=== PATIENT | female | born 1970 | race Caucasian/White ===

== ENCOUNTER 2016-12-10 07:32 | Outpatient (CLI) | payer OTHER ==
[~2016-12-10] VITALS: Ht 177.8 cm; Wt 79.5 kg
[~2016-12-10 07:32] MED LIST: /WARF3TA; AMPICILLIN SOD 2 GM in D5W MINI-BAG PLUS 100 ML IV ONE; ASPI81TA63; COUM2TAB22 PO; COUM6TAB PO; DOCU10CA PO; GAS-80CH PO; MVI; NORA0.35 PO; TUMS500C PO
== END 2016-12-10 08:45 | disposition home or self-care (01) ==
LOC: M INFU 07:32
PROVIDERS: ATTEND Physician Assistant
DX: Z95.4 Presence of other heart-valve replacement (principal); Z91.010 Allergy to peanuts; Z79.82 Long term (current) use of aspirin; Z79.01 Long term (current) use of anticoagulants; Z79.899 Other long term (current) drug therapy

== ENCOUNTER 2016-12-10 17:55 | Outpatient (CLI) | payer OTHER ==
[~2016-12-10] VITALS: Ht 177.8 cm; Wt 49.5 kg
[~2016-12-10 17:55] MED LIST changes: -AMPICILLIN SOD 2 GM in D5W MINI-BAG PLUS 100 ML IV ONE
[2016-12-10 18:00] VITALS: BP 136/69
[2016-12-10] MEDS ORDERED: AMPICILLIN SOD 2 GM in D5W MINI-BAG PLUS 100 ML IV ONE (18:15)
[2016-12-10 18:55] VITALS: BP 138/75
== END 2016-12-10 19:10 | disposition home or self-care (01) ==
LOC: M OPCLIPED 17:55 → M INFU 17:55 → M PED 17:59 → M INFU 19:10
PROVIDERS: ATTEND Physician Assistant
DX: Z95.4 Presence of other heart-valve replacement (principal); Z91.010 Allergy to peanuts; Z79.82 Long term (current) use of aspirin; Z79.01 Long term (current) use of anticoagulants; Z79.899 Other long term (current) drug therapy

== ENCOUNTER → 2017-06-13 | Outpatient (REF) | payer OTHER ==
[2017-06-13 14:03] LABS: INR 2.88; PROTHROMBIN TIME 31.5 SECONDS (12.4-14.5)
== END ==
LOC: M LAB REF 12:30
DX: Z95.2 Presence of prosthetic heart valve (principal); Z79.01 Long term (current) use of anticoagulants
CPT/HCPCS: 85610

== ENCOUNTER 2018-01-05 07:03 | Outpatient (CLI) | payer OTHER ==
[2018-01-05] MEDS: AMPICILLIN SOD 2 GM in D5W MINI-BAG PLUS 100 ML IV (07:45)
== END 2018-01-05 09:15 | disposition home or self-care (01) ==
LOC: M INFU 07:03
DX: Z95.4 Presence of other heart-valve replacement (principal); Z86.79 Personal history of other diseases of the circulatory system; Z79.82 Long term (current) use of aspirin; Z79.01 Long term (current) use of anticoagulants; Z79.899 Other long term (current) drug therapy
CPT/HCPCS: 96365

== ENCOUNTER 2018-01-05 17:03 | Outpatient (CLI) | payer OTHER ==
[2018-01-05] MEDS: AMPICILLIN SOD 2 GM in D5W MINI-BAG PLUS 100 ML IV (17:10)
== END 2018-01-05 17:50 | disposition home or self-care (01) ==
LOC: M INFU 17:03
DX: Z95.4 Presence of other heart-valve replacement (principal); Z79.899 Other long term (current) drug therapy; Z79.82 Long term (current) use of aspirin; Z79.01 Long term (current) use of anticoagulants; Z86.79 Personal history of other diseases of the circulatory system
CPT/HCPCS: 96365

== ENCOUNTER 2019-01-08 06:59 | Outpatient (CLI) | payer OTHER ==
[~2019-01-08] VITALS: Ht 175.3 cm; Wt 79.5 kg
[~2019-01-08 06:59] MED LIST changes: -/WARF3TA; +COUM1TAB19
[2019-01-08 07:00] VITALS: BP 131/75
[2019-01-08] MEDS ORDERED: AMPICILLIN SOD 2 GM in D5W MINI-BAG PLUS 100 ML IV ONE (07:00)
[2019-01-08] MEDS ORDERED: AMPI2INJ2 IV (07:43)
[2019-01-08 09:25] VITALS: BP 144/67
== END 2019-01-08 09:25 | disposition home or self-care (01) ==
LOC: M INFU 06:59
PROVIDERS: ATTEND Physician Assistant
DX: Z95.4 Presence of other heart-valve replacement (principal)

== ENCOUNTER 2019-01-08 17:49 | Outpatient (CLI) | payer OTHER ==
[~2019-01-08] VITALS: Ht 177.8 cm; Wt 79.5 kg
[~2019-01-08 17:49] MED LIST changes: +AMPI2INJ2 IV; +AMPICILLIN SOD 2 GM in D5W MINI-BAG PLUS 100 ML IV ONE
[2019-01-08 18:00] VITALS: BP 149/69
[2019-01-08 18:47] VITALS: BP 149/85
== END 2019-01-08 18:55 | disposition home or self-care (01) ==
LOC: M INFU 17:49
PROVIDERS: ATTEND Physician Assistant
DX: Z95.4 Presence of other heart-valve replacement (principal); Z98.818 Other dental procedure status

== ENCOUNTER → 2019-07-02 | Outpatient (REF) | payer OTHER ==
[~2019-07-02] MED LIST changes: -AMPICILLIN SOD 2 GM in D5W MINI-BAG PLUS 100 ML IV ONE
[2019-07-02 13:58] LABS: INR 2.83; PROTHROMBIN TIME 29.6 SECONDS (11.8-14.0)
== END ==
LOC: M LAB REF 12:34
PROVIDERS: ATTEND Family Medicine
DX: Z79.01 Long term (current) use of anticoagulants (principal); Z95.2 Presence of prosthetic heart valve

== ENCOUNTER 2020-01-10 05:02 | Outpatient (CLI) | payer OTHER ==
[~2020-01-10 05:02] MED LIST changes: -COUM6TAB PO; +COUM6TAB10 PO
[2020-01-10 05:26] VITALS: BP 130/84
[2020-01-10] MEDS ORDERED: AMPICILLIN SOD 2 GM in D5W MINI-BAG PLUS 100 ML IV ONE (06:00)
== END 2020-01-10 07:30 | disposition home or self-care (01) ==
LOC: M OPCLI5PR 05:02 → M MS5PR 05:07 → M OPCLI5PR 07:30
PROVIDERS: ATTEND Physician Assistant
DX: Z95.2 Presence of prosthetic heart valve (principal)
CPT/HCPCS: 96365; J0290

== ENCOUNTER 2020-01-10 17:18 | Outpatient (CLI) | payer OTHER ==
[~2020-01-10] VITALS: Ht 175.3 cm; Wt 78.6 kg
[2020-01-10] MEDS ORDERED: AMPICILLIN SOD 2 GM in D5W MINI-BAG PLUS 100 ML IV SCH (18:00)
[2020-01-10 18:16] VITALS: BP 137/68
== END 2020-01-10 19:10 | disposition home or self-care (01) ==
LOC: M OPCLI5PR 17:18 → M MS5PR 17:30 → M OPCLI5PR 19:10
PROVIDERS: ATTEND Physician Assistant
DX: Z95.2 Presence of prosthetic heart valve (principal)
CPT/HCPCS: 96374; J0290

== ENCOUNTER 2020-09-10 16:33 | Outpatient (CLI) | payer OTHER ==
[~2020-09-10] VITALS: Ht 175.3 cm; Wt 78.6 kg
[~2020-09-10 16:33] MED LIST changes: -GOOD81CH2 PO; -WARF-60 PO
[2020-09-10 16:40] VITALS: BP 160/84
[2020-09-10 17:55] VITALS: BP 138/78
[2020-09-24] MEDS ORDERED: WARF-60 PO (11:20)
[2020-09-24] MEDS ORDERED: GOOD81CH2 PO (11:20)
== END 2020-09-10 17:55 | disposition home or self-care (01) ==
LOC: M INFU 16:33
PROVIDERS: ATTEND Physician Assistant
DX: Z95.2 Presence of prosthetic heart valve (principal)
CPT/HCPCS: 96365; J0290

== ENCOUNTER → 2020-09-10 | Outpatient (CLI) | payer OTHER ==
[~2020-09-10] MED LIST changes: +AMPICILLIN SOD 2 GM in D5W MINI-BAG PLUS 100 ML IV ONE; +GOOD81CH2 PO; +WARF-60 PO
== END ==
LOC: M OPCLI4PR 05:28
PROVIDERS: ATTEND Physician Assistant
DX: Z95.2 Presence of prosthetic heart valve (principal)
CPT/HCPCS: 96374; J0290

== ENCOUNTER → 2020-10-03 | Outpatient (CLI) | payer OTHER ==
[~2020-10-03] MED LIST changes: -AMPICILLIN SOD 2 GM in D5W MINI-BAG PLUS 100 ML IV ONE; +GOOD81CH2 PO; +WARF-60 PO
== END ==
LOC: M LABSMTC 10:05
PROVIDERS: ATTEND Anesthesiology
DX: Z01.818 Encounter for other preprocedural examination (principal); Z20.822 Contact with and (suspected) exposure to COVID-19

== ENCOUNTER 2020-10-08 10:40 | Day surgery (SDC) | payer OTHER ==
[~2020-10-08] VITALS: Ht 175.3 cm; Wt 76.7 kg
[~2020-10-08 10:40] MED LIST changes: +AMPICILLIN SOD 2 GM in D5W MINI-BAG PLUS 100 ML IV ONE; +GENTAMICIN 80 MG in IV 1 EA IV ONE; +NS 1,000 ML IV ONE
--- NOTE | 2020-10-08 12:32 | ROOR ---
Patient Name: Deepthi Leung Procedure Date: 10/08/2020 12:14 PM Date of : 1970 Age: 50 Room: [facility] Gender: Female Note Status: Finalized Procedure: Total Colonoscopy to Cecum + ileoscopy Indications: Screening for colorectal malignant neoplasm Providers: Hu Amaro MD Referring MD: Giovani Ramirez MD Requesting Provider: Medicines: Monitored Anesthesia Care Complications: No immediate complications. Procedure: Pre-Anesthesia Assessment: - The heart rate, respiratory rate, oxygen saturations, blood pressure, adequacy of pulmonary ventilation, and response to care were monitored throughout the procedure. The Colonoscope was introduced through the anus and advanced to the terminal ileum, with identification of the appendiceal orifice and IC valve. The colonoscopy was performed without difficulty. The patient tolerated the procedure well. The quality of the bowel preparation was excellent. Findings: The perianal and digital rectal examinations were normal. Scattered small-mouthed diverticula were found in the recto-sigmoid colon, sigmoid colon and descending colon. The terminal ileum appeared normal. The exam was otherwise without abnormality on direct and retroflexion views. Impression: - Diverticulosis in the recto-sigmoid colon, in the sigmoid colon and in the descending colon. - The examined portion of the ileum was normal. - The examination was otherwise normal on direct and retroflexion views. - No specimens collected. - The exam was otherwise normal to the cecum. Recommendation: - Patient has a contact number available for emergencies. The signs and symptoms of potential delayed complications were discussed with the patient. Return to normal activities tomorrow. Written discharge instructions were provided to the patient. - High fiber diet. - Discharge patient to home. - Continue present medications. - Repeat colonoscopy in 10 years for screening purposes. - Return to referring physician. - The findings and recommendations were discussed with the patient's family. Procedure Code(s): --- Professional --- 80451, Colonoscopy, flexible; diagnostic, including collection of specimen(s) by brushing or washing, when performed (separate procedure) Diagnosis Code(s): --- Professional --- Z12.11, Encounter for screening for malignant neoplasm of colon K57.30, Diverticulosis of large intestine without perforation or abscess without bleeding CPT copyright 2019 [employer]. All rights reserved. The codes documented in this report are preliminary and upon inspector cold working review may be revised to meet current compliance requirements. Hu Amaro MD Hu Amaro MD 10/08/2020 12:32:02 PM Electronically signed by Hu Amaro MD Number of Addenda: 0 Note Initiated On: 10/08/2020 12:14 PM Estimated Blood Loss: Estimated blood loss: none.
[2020-10-08] MEDS ORDERED: LIDOCAINE 2% 100MG/5ML SDV (FOR ANES.) As Ordered ONE (12:47)
[2020-10-08] MEDS ORDERED: propofoL 200 MG/20 ML VIAL As Ordered ONE (12:47)
[2020-10-08 13:00] VITALS: BP 124/66
== END 2020-10-08 13:13 | disposition home or self-care (01) ==
LOC: M OPP 10:40
PROVIDERS: ATTEND Internal Medicine Gastroenterology
DX: Z12.11 Encounter for screening for malignant neoplasm of colon (principal); K57.30 Diverticulosis of large intestine without perforation or abscess without bleeding; Z79.01 Long term (current) use of anticoagulants; Z79.82 Long term (current) use of aspirin; Z95.4 Presence of other heart-valve replacement; Z91.018 Allergy to other foods
CPT/HCPCS: 45378; J0290; J1580

== ENCOUNTER → 2020-12-05 | Outpatient (CLI) | payer OTHER ==
[~2020-12-05] MED LIST changes: -AMPICILLIN SOD 2 GM in D5W MINI-BAG PLUS 100 ML IV ONE; -GENTAMICIN 80 MG in IV 1 EA IV ONE; -NS 1,000 ML IV ONE
--- NOTE | 2020-12-05 09:24 | REPMRS ---
Patient History The patient states she had a clinical breast exam on 06/11/2020. Patient had first child at age 34. No known family history of cancer. Taking hormonal contraceptives for 4 years beginning at age 46. Patient states no breast complaints today. Patient has signed MRS History Sheet. Digital Woman Screen Mammo: December 05, 2020 - Exam #: [id number] Bilateral CC and MLO view(s) were taken. Technologist: Maritza Son, Wet Milling Wheel Operator Prior study comparison: July 25, 2019, bilateral screening 3D/tomosynthesis, performed at [facility]. November 24, 2018, bilateral screening 3D/tomosynthesis, performed at [facility]. FINDINGS: There are scattered fibroglandular densities. Screening. Digital screening (2D) mammography was performed bilaterally in the CC and MLO projections. Additionally, breast tomosynthesis (3D mammography) was performed bilaterally in the CC and MLO projections. Todays exam was compared to the prior exam/exams. By history, the patient has no complaints of a palpable breast abnormality or other significant breast complaints. The Volpara volumetric breast density category is B, there are scattered areas of fibroglandular densities. The breasts are unchanged in size and shape. There are no sary-soft tissue densities or spiculated masses. There is no internal architectural distortion. There are no suspicious sary-calcific clusters. Skin thickening or nipple retraction is not present. IMPRESSION: BI-RADS Category 2- Benign Findings. There is no evidence of malignant alteration of the breasts. Followup examination recommended in one year. This mammogram was read with the assistance of [employer],an FDA approved computer aided detection system for mammography. The lifetime Tyrer-Cuzick score is 12.3% Negative x-ray reports should not delay surgical consultation if a dominant or clinically suspicious mass is present. Not all breast cancers can be identified by mammography. Therefore, we recommend that you continue to perform regular breast self-examination and physical examination and then promptly contact your physician of any concerns or changes. Adenosis and dense breasts may obscure an underlying neoplasm. No significant changes when compared with prior studies. Assessment: BI-RADS/ACR category 2 mammogram. Benign Findings. Recommendation Routine screening mammogram of both breasts in 1 year. Electronically Signed By: Jam Higginbotham MD 12/05/20 0909
== END ==
LOC: M WHC 08:20
PROVIDERS: ATTEND Obstetrics & Gynecology
DX: Z12.31 Encounter for screening mammogram for malignant neoplasm of breast (principal)

== ENCOUNTER 2021-01-09 07:05 | Outpatient (CLI) | payer OTHER ==
[~2021-01-09] VITALS: Ht 175.3 cm; Wt 78.6 kg
[~2021-01-09 07:05] MED LIST changes: -AMPI2INJ2 IV; +AMPI2INJ3 IV; +AMPICILLIN SOD 2 GM in D5W MINI-BAG PLUS 100 ML IV SCH
[2021-01-09] MEDS ORDERED: AMPICILLIN SOD 2 GM in D5W MINI-BAG PLUS 100 ML IV ONE ×2 (07:30→15:00)
[2021-01-09 09:40] VITALS: BP 146/81
[2021-01-09] MEDS ORDERED: AMPICILLIN SOD 2 GM in D5W MINI-BAG PLUS 100 ML IV SCH (15:00)
== END 2021-01-09 09:40 | disposition home or self-care (01) ==
LOC: M INFU 07:05
PROVIDERS: ATTEND Physician Assistant
DX: I35.1 Nonrheumatic aortic (valve) insufficiency (principal); I33.0 Acute and subacute infective endocarditis; Z95.2 Presence of prosthetic heart valve
CPT/HCPCS: 96365; J0290

== ENCOUNTER 2021-01-09 18:29 | Outpatient (CLI) | payer OTHER ==
[~2021-01-09] VITALS: Ht 175.3 cm; Wt 78.6 kg
[~2021-01-09 18:29] MED LIST changes: +AMPI2INJ2 IV; -AMPI2INJ3 IV; -AMPICILLIN SOD 2 GM in D5W MINI-BAG PLUS 100 ML IV SCH
[2021-01-09 18:30] VITALS: BP 133/68
[2021-01-09] MEDS ORDERED: AMPICILLIN SOD 2 GM in D5W MINI-BAG PLUS 100 ML IV ONE (18:45)
[2021-01-09] MEDS ORDERED: AMPICILLIN SOD 2 GM in D5W MINI-BAG PLUS 100 ML IV SCH (18:45)
[2021-01-09 19:36] VITALS: BP 123/68
== END 2021-01-09 19:35 | disposition home or self-care (01) ==
LOC: M INFU 18:29
PROVIDERS: ATTEND Internal Medicine Cardiovascular Disease
DX: I35.8 Other nonrheumatic aortic valve disorders (principal); Z95.4 Presence of other heart-valve replacement
CPT/HCPCS: 96365; J0290

== ENCOUNTER → 2021-12-07 | Outpatient (CLI) | payer BC, MEDICARE, SELFPAY ==
[~2021-12-07] MED LIST changes: -AMPI2INJ2 IV; +AMPI2INJ3 IV
== END ==
LOC: M WHC 09:07
PROVIDERS: ATTEND Obstetrics & Gynecology
DX: Z12.31 Encounter for screening mammogram for malignant neoplasm of breast (principal)

== ENCOUNTER 2022-01-14 07:30 | Outpatient (CLI) | payer BC ==
[~2022-01-14] VITALS: Ht 175.3 cm; Wt 78.6 kg
[~2022-01-14 07:30] MED LIST changes: -GOOD81CH2 PO; +RA A81CH3 PO
[2022-01-14] MEDS: AMPICILLIN SOD 2 GM in D5W MINI-BAG PLUS 100 ML IV ONE ×2 (08:14→08:49)
[2022-01-14 08:45] VITALS: BP 117/58
[2022-01-14 09:35] VITALS: BP 151/65
[2022-01-14] MEDS ORDERED: AMPICILLIN SOD 2 GM in D5W MINI-BAG PLUS 100 ML IV ONE (18:00)
== END 2022-01-14 09:30 | disposition home or self-care (01) ==
LOC: M INFU 07:30
PROVIDERS: ATTEND Physician Assistant
DX: I35.8 Other nonrheumatic aortic valve disorders (principal); Z95.4 Presence of other heart-valve replacement
CPT/HCPCS: 96365; J0290

== ENCOUNTER 2022-01-14 18:43 | Outpatient (CLI) | payer BC ==
[~2022-01-14] VITALS: Ht 175.3 cm; Wt 78.6 kg
[2022-01-14] MEDS ORDERED: AMPICILLIN SOD 2 GM in D5W MINI-BAG PLUS 100 ML IV ONE (19:00)
[2022-01-14 19:20] VITALS: BP 135/67
[2022-01-14 20:11] VITALS: BP 134/68
== END 2022-01-14 20:11 | disposition home or self-care (01) ==
LOC: M INFU 18:43 → M MS5PR 18:44 → M INFU 20:11
PROVIDERS: ATTEND Family Medicine
DX: I35.8 Other nonrheumatic aortic valve disorders (principal); Z95.4 Presence of other heart-valve replacement
CPT/HCPCS: 96365; J0290

== ENCOUNTER 2023-04-07 07:46 | Outpatient (CLI) | payer BC ==
[~2023-04-07 07:46] MED LIST changes: +ASPI-663 PO; -RA A81CH3 PO
[2023-04-07] MEDS ORDERED: AMPICILLIN SOD 2 GM in D5W MINI-BAG PLUS 100 ML IV ONE (08:15)
[2023-04-07 09:20] VITALS: BP 152/68; O2SAT 100
== END 2023-04-07 09:20 ==
LOC: M INFU 07:46
PROVIDERS: ATTEND Physician Assistant
DX: I35.0 Nonrheumatic aortic (valve) stenosis (principal); Z95.2 Presence of prosthetic heart valve
CPT/HCPCS: 96365; J0290

== ENCOUNTER 2023-04-07 19:49 | Outpatient (CLI) | payer BC ==
[~2023-04-07] VITALS: Ht 177.8 cm; Wt 83.0 kg
[2023-04-07 20:00] VITALS: BP 145/73; TEMP 98.6; O2SAT 99
[2023-04-07] MEDS ORDERED: AMPICILLIN SOD 2 GM in D5W MINI-BAG PLUS 100 ML IV ONE (20:20)
[2023-04-07 21:30] VITALS: BP 147/71; TEMP 98.4; O2SAT 100
== END 2023-04-07 21:40 | disposition home or self-care (01) ==
LOC: M PED 19:49 → M OPCLIPED 19:49 → M INFU 19:49 → M PED 21:40
PROVIDERS: ATTEND Internal Medicine Cardiovascular Disease
DX: I35.0 Nonrheumatic aortic (valve) stenosis (principal); Z95.2 Presence of prosthetic heart valve
CPT/HCPCS: 96365; J0290

== ENCOUNTER → 2023-08-22 | Outpatient (REF) | payer BC | LOC: M PLALAB 08:27 | PROVIDERS: ATTEND Nurse Practitioner Family | DX: Z12.4 Encounter for screening for malignant neoplasm of cervix (principal); Z11.51 Encounter for screening for human papillomavirus (HPV) ==

== ENCOUNTER → 2023-09-02 | Outpatient (REF) | payer BC ==
[2023-09-02 16:52] LABS: BASO % 0.2 % (0.0-1.0); HEMATOCRIT 38.9 % (36.0-47.0); HEMOGLOBIN 12.6 g/dl (12.0-15.5); LYMPH # 0.7 10^3/uL (1.5-5.0); MEAN CORPUSCULAR HGB CONC 32.4 g/dl (32.0-36.5); MEAN CORPUSCULAR VOLUME 98.7 fl (80.0-96.0); MONO # 0.1 10^3/uL (0.0-0.8); MONO % 0.8 % (2.0-8.0); NEUTROPHILS # 9.7 10^3/uL (1.5-8.5); NEUTROPHILS % 91.8 % (36.0-66.0); PLATELET COUNT, AUTOMATED 306 10^3/uL (150-450); RED BLOOD COUNT 3.94 10^6/uL (4.00-5.40); WHITE BLOOD COUNT 10.6 10^3/uL (4.0-10.0)
[2023-09-02 17:11] LABS: INR 3.88; PROTHROMBIN TIME 36.6 SECONDS (12.5-14.5)
== END ==
LOC: M LABWUC 16:20
PROVIDERS: ATTEND Family Medicine
DX: R79.9 Abnormal finding of blood chemistry, unspecified (principal); Z79.01 Long term (current) use of anticoagulants

== ENCOUNTER → 2024-01-03 | Outpatient (REF) | payer BC | LOC: M SFHCDERM 13:46 | PROVIDERS: ATTEND Nurse Practitioner Family | DX: C44.519 Basal cell carcinoma of skin of other part of trunk (principal) ==

== ENCOUNTER → 2024-01-18 | Outpatient (CLI) | payer BC | LOC: M WHC 09:33 | PROVIDERS: ATTEND Nurse Practitioner Family | DX: Z12.31 Encounter for screening mammogram for malignant neoplasm of breast (principal); R92.323 Mammographic fibroglandular density, bilateral breasts ==

== ENCOUNTER → 2024-02-16 | Outpatient (CLI) | payer BC | LOC: M CARPUL 08:40 | PROVIDERS: ATTEND Physician Assistant | DX: Q21.12 Patent foramen ovale (principal); Z95.2 Presence of prosthetic heart valve; I08.1 Rheumatic disorders of both mitral and tricuspid valves ==

== ENCOUNTER → 2024-02-16 | Outpatient (REF) | payer BC | LOC: M SFHCWAGY 14:25 | PROVIDERS: ATTEND Nurse Practitioner Family | DX: N73.9 Female pelvic inflammatory disease, unspecified (principal) ==

== ENCOUNTER 2024-05-10 06:55 | Outpatient (CLI) | payer BC ==
[~2024-05-10] VITALS: Ht 175.3 cm; Wt 78.6 kg
[2024-05-10 08:03] VITALS: BP 171/83; O2SAT 98
[2024-05-10] MEDS: AMPICILLIN SOD IV ONE (08:22)
[2024-05-10] MEDS: SODIUM CHLORIDE 0.9% IV ONE (08:22)
[2024-05-10 09:00] VITALS: BP 145/68; O2SAT 99
== END 2024-05-10 08:55 | disposition home or self-care (01) ==
LOC: M INFU 06:55
PROVIDERS: ATTEND Physician Assistant
DX: I35.0 Nonrheumatic aortic (valve) stenosis (principal)
CPT/HCPCS: 96365; J0290

== ENCOUNTER 2024-05-10 07:00 | Outpatient (CLI) | payer BC | END 2024-05-10 08:55 | LOC: M INFU 07:00 | PROVIDERS: ATTEND Physician Assistant | DX: I35.9 Nonrheumatic aortic valve disorder, unspecified (principal); Z95.2 Presence of prosthetic heart valve ==

== ENCOUNTER 2024-05-10 18:43 | Outpatient (CLI) | payer BC ==
[~2024-05-10] VITALS: Ht 175.3 cm; Wt 78.6 kg
[2024-05-10] MEDS: SODIUM CHLORIDE 0.9% IV ONE (19:06)
[2024-05-10] MEDS: AMPICILLIN SOD IV ONE (19:06)
[2024-05-10 19:40] VITALS: BP 126/82; O2SAT 97
== END 2024-05-10 19:40 | disposition home or self-care (01) ==
LOC: M INFU 18:43
PROVIDERS: ATTEND Physician Assistant
DX: I35.0 Nonrheumatic aortic (valve) stenosis (principal)

== ENCOUNTER → 2024-06-25 | Outpatient (REF) | payer BC ==
[2024-06-27 15:31] LABS: RUBEOLA IgG ANTIBODY 72.5 AU/mL (>16.49)
== END ==
LOC: M LAB REF 12:25
PROVIDERS: ATTEND Family Medicine
DX: Z23 Encounter for immunization (principal)

== ENCOUNTER → 2025-01-24 | Outpatient (CLI) | payer BC | LOC: M WHC 08:50 | PROVIDERS: ATTEND Nurse Practitioner Family | DX: Z12.31 Encounter for screening mammogram for malignant neoplasm of breast (principal); R92.323 Mammographic fibroglandular density, bilateral breasts ==

== ENCOUNTER → 2025-01-24 | Outpatient (CLI) | payer BC ==
[2025-01-24 13:56] LABS: LUTEINIZING HORMONE 32.7 mIU/ML; PROLACTIN 4.35 NG/ML
[2025-01-24 13:57] LABS: ESTRADIOL < 19.0 PG/ML; PROGESTERONE 0.29 NG/ML
== END ==
LOC: M PLALAB 09:53
PROVIDERS: ATTEND Nurse Practitioner Family
DX: N95.9 Unspecified menopausal and perimenopausal disorder (principal)